=== PATIENT | female | born 1990 | race Caucasian/White ===

== ENCOUNTER 2016-06-18 13:07 | Emergency (ER) | payer OTHER ==
[~2016-06-18] VITALS: Ht 160 cm; Wt 102.5 kg
[~2016-06-18 13:07] MED LIST: IBUP600 PO; PERI8.6T PO; PREN0.01 PO
[2016-06-18 13:08] VITALS: BP 154/90; PULSE 92; RESP 16; TEMP 98.3; O2SAT 100
[2016-06-18] MEDS ORDERED: PREN1TAB63 PO (13:28)
--- NOTE | 2016-06-18 14:04 | PD ---
HPI Chief Complaint: Tool [employer] Checker Problem/Complaint Time Seen by Provider: 14:02 Travel History International Travel<30 days: No Contact w/Intl Traveler<30days: No Traveled to known affect area: No History of Present Illness HPI 25-year-old female coming in with question probably with her IUD. Patient states she is 16 weeks and had an IUD placed approximately 12 weeks ago. Patient had some spotting since IUD placement but recently in the past 2 weeks she's had increased bleeding and clots, the patient felt this morning that she could feel the string of the IUD outside her genitalia. Patient denies fever, chills, urinary symptoms, or abdominal pain. Patient states she did call her [employer]ICT[employer] ANALYST and was scheduled for an ultrasound. Patient states her bleeding has gotten worse in the past 24 hours, but not going through a pad every 2 hours. She denies weakness or dizziness. She has no known drug allergies. PFSH Past Medical History Medical History: Denies Significant Hx Diminished Hearing: No Thyroid Disease: Yes (HYPO) Tetanus Vaccination: Unknown ?: Not LMP: now : 1 Para: 1 Ovarian Cysts: Yes Past Surgical History Other Surgery: Yes (iud 2017) Family History Family Hypercholesterolemia: Yes Social History Alcohol Use: No Tobacco Use: No Substance Use: No Allergies-Medications (Allergen,Severity, Reaction): Coded Allergies: No Known Allergies (Unverified , 06/18/16) Reported Meds & Prescriptions Reported Meds & Active Scripts Active Reported Vitamins 0.8 mg ( Multivit-Min W/Fe-FA) 1 Tab Tab 1 Tab PO DAILY Review of Systems Except as stated in HPI: all other systems reviewed are Neg General / Constitutional: No: Fever Eyes: No: Visual changes HENT: No: Headaches Cardiovascular: No: Chest Pain or Discomfort Respiratory: No: Shortness of Breath Gastrointestinal: No: Abdominal Pain Genitourinary: No: Dysuria Musculoskeletal: No: Pain Skin: No Rash Neurologic: No: Weakness Psychiatric: No: Depression Endocrine: No: Polydipsia Hematologic/Lymphatic: No: Easy Bruising Physical Exam Narrative GENERAL: Patient appears in no acute distress. SKIN: Warm and dry. Normal color. Normal turgor. HEAD: Atraumatic. Normocephalic. EYES: Pupils equal and round. No scleral icterus. No injection or drainage. ENT: No nasal bleeding or discharge. Mucous membranes pink and moist. Pharynx is normal. NECK: Trachea midline. Neck is supple. CARDIOVASCULAR: Regular rate and rhythm. No murmurs gallops or rubs. RESPIRATORY: No accessory muscle use. Clear to auscultation. Breath sounds equal bilaterally. GASTROINTESTINAL: Abdomen soft, non-tender, nondistended. Hepatic and splenic margins not palpable. PELVIC: Pelvic exam shows moderate venous bleeding with clots. The cervical os is open, and no appreciable string from the IUD is noted. Pelvic performed with nursing staff lab manager. MUSCULOSKELETAL: Extremities without clubbing, cyanosis, or edema. No obvious deformities. NEUROLOGICAL: Awake and alert. No obvious cranial nerve deficits. Motor grossly within normal limits. Five out of 5 muscle strength in the arms and legs. Normal speech. PSYCHIATRIC: Appropriate mood and affect; insight and judgment normal. Data Data Last Documented VS Vital Signs Date Time Temp Pulse Resp B/P Pulse Ox O2 Delivery O2 Flow Rate FiO2 06/18/16 13:08 98.3 92 16 154/90 100 Room Air Orders Complete Blood Count With Diff (06/18/16 14:04) Comprehensive Metabolic Panel (06/18/16 14:04) Prothrombin Time / Inr (Pt) (06/18/16 14:04) Act Partial Throm Time (Ptt) (06/18/16 14:04) Iv Access Insert/Monitor (06/18/16 14:04) Ecg Monitoring (06/18/16 14:04) Us Pelvis Comp W Transvaginal (06/18/16 ) Labs Laboratory Tests Test 06/18/16 14:30 White Blood Count 7.3 TH/MM3 Red Blood Count 4.93 MIL/MM3 Hemoglobin 12.7 GM/DL Hematocrit 38.5 % Mean Corpuscular Volume 78.1 FL Mean Corpuscular Hemoglobin 25.8 PG Mean Corpuscular Hemoglobin 33.0 % Concent Red Cell Distribution Width 15.8 % Platelet Count 272 TH/MM3 Mean Platelet Volume 8.5 FL Neutrophils (%) (Auto) 58.2 % Lymphocytes (%) (Auto) 32.6 % Monocytes (%) (Auto) 7.0 % Eosinophils (%) (Auto) 1.5 % Basophils (%) (Auto) 0.7 % Neutrophils # (Auto) 4.2 TH/MM3 Lymphocytes # (Auto) 2.4 TH/MM3 Monocytes # (Auto) 0.5 TH/MM3 Eosinophils # (Auto) 0.1 TH/MM3 Basophils # (Auto) 0.0 TH/MM3 CBC Comment DIFF FINAL Differential Comment Prothrombin Time 11.0 SEC Prothromb Time International 1.0 RATIO Ratio Activated Partial 28.5 SEC Thromboplast Time Sodium Level 141 MEQ/L Potassium Level 3.6 MEQ/L Chloride Level 106 MEQ/L Carbon Dioxide Level 27.2 MEQ/L Anion Gap 8 MEQ/L Blood Urea Nitrogen 9 MG/DL Creatinine 0.69 MG/DL Estimat Glomerular Filtration 103 ML/MIN Rate Random Glucose 65 MG/DL Calcium Level 9.3 MG/DL Total Bilirubin 0.3 MG/DL Aspartate Amino Transf 33 U/L (AST/SGOT) Alanine Aminotransferase 111 U/L (ALT/SGPT) Alkaline Phosphatase 97 U/L Total Protein 7.7 GM/DL Albumin 3.7 GM/DL [facility] Medical Decision Making Medical Screen Exam Complete: Yes Emergency Medical Condition: Yes Differential Diagnosis Vaginal bleeding. Possible IUD issue. 16 weeks . Narrative Course Patient is felt to be medically stable at time of exam. CBC, CMP as well as PT PTT and INR is ordered. No IUD string was identified upon pelvic exam. Patient is discussed with Dr. Deng, who recommends a pelvic ultrasound. CBC, CMP, and coagulation studies are within normal limits. Pelvic ultrasound shows IUD within the cervix, despite no obvious findings on pelvic exam. This is discussed with Dr. Deng, who will reexamine the patient. Dr. Deng performed pelvic exam and did remove the IUD without difficulty. Patient is felt to be stable to be discharged home. Patient has a follow-up with her CONFLICTS ANALYST next Sunday as scheduled. Patient will follow-up as scheduled and use condoms for any sexual activity prior to that visit. Diagnosis Primary Impression: IUD complication Qualified Code: T83.32XA - Displacement of intrauterine contraceptive device, initial encounter Patient Instructions: General Instructions Additional Instructions: Dr. Deng performed pelvic exam and did remove the IUD without difficulty. Patient is felt to be stable to be discharged home. Patient has a follow-up with her CONFLICTS ANALYST next Sunday as scheduled. Patient will follow-up as scheduled and use condoms for any sexual activity prior to that visit. Disposition: DISCHARGE HOME Condition: Stable Anjum Lewis Jun 18, 2016 14:03
[2016-06-18 14:53] LABS: AUTOMATED NEUTROPHIL # 4.2 TH/MM3 (1.8-7.7); BASOPHIL % 0.7 % (0.0-2.0); EOSINOPHIL # 0.1 TH/MM3 (0-0.4); EOSINOPHIL % 1.5 % (0.0-4.0); HEMATOCRIT 38.5 % (35.0-46.0); HEMO FLAGS DIFF FINAL; LYMPH % 32.6 % (9.0-44.0); LYMPHOCYTE # 2.4 TH/MM3 (1.0-4.8); MEAN CELL VOLUME 78.1 FL (80.0-100.0); MEAN CORPUSCULAR HEMOGLOBIN 25.8 PG (27.0-34.0); NEUT % 58.2 % (16.0-70.0); PLATELET COUNT 272 TH/MM3 (150-450); RED BLOOD COUNT 4.93 MIL/MM3 (4.00-5.30); RED CELL DISTRIBUTION WIDTH 15.8 % (11.6-17.2); WHITE BLOOD COUNT 7.3 TH/MM3 (4.0-11.0)
[2016-06-18 15:14] LABS: APTT (PATIENT) 28.5 SEC (24.3-30.1)
[2016-06-18 15:19] LABS: ALT (GPT) 111 U/L (10-53); ANION GAP 8 MEQ/L (5-15); AST (GOT) 33 U/L (15-37); BICARBONATE 27.2 MEQ/L (21.0-32.0); BLOOD UREA NITROGEN 9 MG/DL (7-18); CHLORIDE 106 MEQ/L (98-107); GLOMERULAR FILTRATION RATE 103 ML/MIN (>89); POTASSIUM 3.6 MEQ/L (3.5-5.1); SODIUM (NA) 141 MEQ/L (136-145)
[2016-06-18 15:21] LABS: ALKALINE PHOSPHATASE 97 U/L (45-117); TOTAL BILIRUBIN ADULT 0.3 MG/DL (0.2-1.0)
[2016-06-18 15:25] VITALS: BP 132/74; PULSE 80; RESP 20; O2SAT 100
--- NOTE | 2016-06-18 16:23 | RADRPT ---
EXAM DATE/TIME: 06/18/2016 15:21 [facility] COMPARISON: No previous studies available for comparison. INDICATIONS : Displacement of IUD. Bleeding. MEDICAL HISTORY : Hypothyroidism. IUD. Ovarian cysts. SURGICAL HISTORY : IUd placement in April 2016. ENCOUNTER: Initial ACUITY: 1 week PAIN SCORE: 7/10 LOCATION: Bilateral pelvis MEASUREMENTS: UTERUS: 8.3 x 5.0 x 6.2 cm ENDOMETRIAL STRIPE: 5 mm RIGHT OVARY: 3.9 x 2.3 x 2.3 cm LEFT OVARY: 3.8 x 2.4 x 2.5 cm FINDINGS: UTERUS: The myometrium has homogeneous echotexture without mass. The IUD appears to be located in the region of the cervix. RIGHT OVARY: Ovary contains no mass or significant cystic lesion. LEFT OVARY: Ovary contains no mass or significant cystic lesion. MISCELLANEOUS: No free fluid. CONCLUSION: IUD appears to be located in the region of the cervix. Otherwise unremarkable uterus and ovaries. Kyree Lewis MD on June 18, 2016 at 16:19 Board Certified Radiologist. This report was verified electronically.
--- NOTE | 2016-06-18 18:15 | PD ---
Data Data Last Documented VS Vital Signs Date Time Temp Pulse Resp B/P Pulse Ox O2 Delivery O2 Flow Rate FiO2 06/18/16 15:25 80 20 132/74 100 06/18/16 13:08 98.3 Room Air Orders Complete Blood Count With Diff (06/18/16 14:04) Comprehensive Metabolic Panel (06/18/16 14:04) Prothrombin Time / Inr (Pt) (06/18/16 14:04) Act Partial Throm Time (Ptt) (06/18/16 14:04) Iv Access Insert/Monitor (06/18/16 14:04) Ecg Monitoring (06/18/16 14:04) Us Pelvis Comp W Transvaginal (06/18/16 ) Labs Laboratory Tests Test 06/18/16 14:30 White Blood Count 7.3 TH/MM3 Red Blood Count 4.93 MIL/MM3 Hemoglobin 12.7 GM/DL Hematocrit 38.5 % Mean Corpuscular Volume 78.1 FL Mean Corpuscular Hemoglobin 25.8 PG Mean Corpuscular Hemoglobin 33.0 % Concent Red Cell Distribution Width 15.8 % Platelet Count 272 TH/MM3 Mean Platelet Volume 8.5 FL Neutrophils (%) (Auto) 58.2 % Lymphocytes (%) (Auto) 32.6 % Monocytes (%) (Auto) 7.0 % Eosinophils (%) (Auto) 1.5 % Basophils (%) (Auto) 0.7 % Neutrophils # (Auto) 4.2 TH/MM3 Lymphocytes # (Auto) 2.4 TH/MM3 Monocytes # (Auto) 0.5 TH/MM3 Eosinophils # (Auto) 0.1 TH/MM3 Basophils # (Auto) 0.0 TH/MM3 CBC Comment DIFF FINAL Differential Comment Prothrombin Time 11.0 SEC Prothromb Time International 1.0 RATIO Ratio Activated Partial 28.5 SEC Thromboplast Time Sodium Level 141 MEQ/L Potassium Level 3.6 MEQ/L Chloride Level 106 MEQ/L Carbon Dioxide Level 27.2 MEQ/L Anion Gap 8 MEQ/L Blood Urea Nitrogen 9 MG/DL Creatinine 0.69 MG/DL Estimat Glomerular Filtration 103 ML/MIN Rate Random Glucose 65 MG/DL Calcium Level 9.3 MG/DL Total Bilirubin 0.3 MG/DL Aspartate Amino Transf 33 U/L (AST/SGOT) Alanine Aminotransferase 111 U/L (ALT/SGPT) Alkaline Phosphatase 97 U/L Total Protein 7.7 GM/DL Albumin 3.7 GM/DL [facility] Supervised Visit with DRAKE: Yes Narrative Course The history, exam, and medical decision-making in the associated midlevel provider note were completed with my assistance. I reviewed and agree with the findings presented. I attest that I had a [id number] encounter with the patient on the same day, and personally performed and documented my assessment and findings in the medical record. *My assessment and Findings: This is a 25-year-old female who presents to the emergency department with vaginal bleeding feeling IUD strings in her vagina earlier today. An ultrasound was performed which demonstrates the IUD in the cervix. I performed a pelvic exam and her strings were long and in the vault so I removed the IUD without difficulty. I advised the patient to use contraception and follow-up with Dr. Livingston at her scheduled appointment. Diagnosis Primary Impression: IUD complication Qualified Code: T83.32XA - Displacement of intrauterine contraceptive device, initial encounter Patient Instructions: General Instructions Departure Forms: Tests/Procedures Additional Instruction: Dr. Deng performed pelvic exam and did remove the IUD without difficulty. Patient is felt to be stable to be discharged home. Patient has a follow-up with her [employer] next Sunday as scheduled. Patient will follow-up as scheduled and use condoms for any sexual activity prior to that visit. Disposition: 01 DISCHARGE HOME Condition: Stable Nicole Deng MD Jun 18, 2016 18:14
== END 2016-06-18 17:42 | disposition home or self-care (01) ==
LOC: NEPE 13:07
DX: T83.32XA Displacement of intrauterine contraceptive device, initial encounter (principal); E03.9 Hypothyroidism, unspecified
CPT/HCPCS: 76830; 76856; 80053; 85025; 85610; 85730

== ENCOUNTER 2017-07-06 16:18 | Emergency (ER) | payer OTHER ==
[~2017-07-06 16:18] MED LIST changes: -IBUP600 PO; -PERI8.6T PO; -PREN0.01 PO; +PREN1TAB63 PO
[2017-07-06] MEDS ORDERED: IOHEXOL 350 MG/ML 10 ML VIAL (for RAD DIAG) IVCONTRAST ONE (16:19)
[2017-07-06 16:20] VITALS: BP 154/91; PULSE 80; RESP 14; TEMP 98.5; O2SAT 100
[2017-07-06] MEDS ORDERED: SODIUM CHLOR 0.9% 1000 ML INJ 1,000 ML IV SCH (16:37)
[2017-07-06] MEDS ORDERED: KETOROLAC TROMETHAMINE 30 MG/ML (IVP) VIAL IVP ONE (16:45)
[2017-07-06] MEDS ORDERED: ONDANSETRON HCL 4 MG/2 ML VIAL IVP ONE (16:45)
[2017-07-06] MEDS ORDERED: SODIUM CHLORIDE 0.9% FLUSH 10 ML FLUSH IV FLUSH PRN (16:45)
--- NOTE | 2017-07-06 16:55 | PD ---
HPI Chief Complaint: Abdominal Pain Time Seen by Provider: 16:37 Travel History International Travel<30 days: No Contact w/Intl Traveler<30days: No Traveled to known affect area: No History of Present Illness HPI 26-year-old female presents to the emergency department complaint of right lower quadrant abdominal pain since last night. Reports nausea without vomiting. Denies vaginal discharge, dysuria, fevers, diarrhea. Has had light vaginal bleeding times one month since her IUD was placed. Last normal bowel movement was yesterday. Denies history of abdominal surgeries. Rates pain 6/ 10 and describes it as a "pulling and grabbing" sensation. Tried taking ibuprofen with no leaf of symptoms. Pain has been constant and unrelieved. No known aggravating or relieving factors. No known allergies. Primary care provider is Dr. her mariee. History of PCOC and hypothyroidism. Has no other medical complaints. No other modifying factors or associated signs and symptoms. PFSH Past Medical History Diminished Hearing: No Thyroid Disease: Yes (HYPO) ?: Not LMP: Now : 1 Para: 1 Ovarian Cysts: Yes Past Surgical History Other Surgery: Yes (iud 2017) Family History Family Hypercholesterolemia: Yes Social History Alcohol Use: No Tobacco Use: No Substance Use: No Allergies-Medications (Allergen,Severity, Reaction): Coded Allergies: No Known Allergies (Unverified Allergy, Unknown, 07/06/17) Reported Meds & Prescriptions Reported Meds & Active Scripts Active Reported Vitamins 0.8 mg ( Multivit-Min W/Fe-FA) 1 Tab Tab 1 Tab PO DAILY Review of Systems Except as stated in HPI: all other systems reviewed are Neg Physical Exam Narrative GENERAL: Well-nourished, well-developed female patient, in no acute distress; afebrile SKIN: Warm and dry. HEAD: Atraumatic. Normocephalic. EYES: Pupils equal and round. No scleral icterus. No injection or drainage. ENT: Mucosa pink and moist. Airway patent. NECK: Trachea midline. CARDIOVASCULAR: Regular rate and rhythm. No murmur appreciated. RESPIRATORY: No accessory muscle use. Clear to auscultation. Breath sounds equal bilaterally. GASTROINTESTINAL: Abdomen soft, tenderness on palpation to right lower quadrant , nondistended. Hepatic and splenic margins not palpable. Bowel sounds are active 4 quadrants. Nonrigid. No rebound tenderness. No guarding. BACK: No CVA tenderness. MUSCULOSKELETAL: No obvious deformities. No clubbing. No cyanosis. No edema. NEUROLOGICAL: Awake and alert. Oriented 3. No obvious cranial nerve deficits. Motor grossly within normal limits. Normal speech. PSYCHIATRIC: Appropriate mood and affect; insight and judgment normal. Data Data Last Documented VS Vital Signs Date Time Temp Pulse Resp B/P (MAP) Pulse Ox O2 Delivery O2 Flow Rate FiO2 07/06/17 18:35 62 16 118/71 (87) 99 Room Air 07/06/17 16:20 98.5 Orders Orders Complete Blood Count With Diff (07/06/17 16:37) Comprehensive Metabolic Panel (07/06/17 16:37) Lipase (07/06/17 16:37) Urinalysis - C+S If Indicated (07/06/17 16:37) Iv Access Insert/Monitor (07/06/17 16:37) Ecg Monitoring (07/06/17 16:37) Oximetry (07/06/17 16:37) Ondansetron Inj (Zofran Inj) (07/06/17 16:45) Sodium Chlor 0.9% 1000 Ml Inj (Ns 1000 M (07/06/17 16:37) Sodium Chloride 0.9% Flush (Ns Flush) (07/06/17 16:45) Ketorolac Inj (Toradol Inj) (07/06/17 16:45) Ed Urine Pregnancytest Poc (07/06/17 16:37) Ct Abd/Pel W Iv Contrast(Rout) (07/06/17 16:45) Urine Culture (07/06/17 17:10) Iohexol 350 Inj (Omnipaque 350 Inj) (07/06/17 16:19) Ceftriaxone Inj (Rocephin Inj) (07/06/17 18:30) Labs Laboratory Tests Test 07/06/17 17:10 White Blood Count 7.4 TH/MM3 Red Blood Count 5.27 MIL/MM3 Hemoglobin 15.5 GM/DL Hematocrit 44.9 % Mean Corpuscular Volume 85.2 FL Mean Corpuscular Hemoglobin 29.4 PG Mean Corpuscular Hemoglobin Concent 34.5 % Red Cell Distribution Width 14.1 % Platelet Count 234 TH/MM3 Mean Platelet Volume 8.2 FL Neutrophils (%) (Auto) 66.1 % Lymphocytes (%) (Auto) 26.6 % Monocytes (%) (Auto) 6.4 % Eosinophils (%) (Auto) 0.5 % Basophils (%) (Auto) 0.4 % Neutrophils # (Auto) 4.9 TH/MM3 Lymphocytes # (Auto) 2.0 TH/MM3 Monocytes # (Auto) 0.5 TH/MM3 Eosinophils # (Auto) 0.0 TH/MM3 Basophils # (Auto) 0.0 TH/MM3 CBC Comment DIFF FINAL Differential Comment Urine Color YELLOW Urine Turbidity CLEAR Urine pH 7.5 Urine Specific [place] 1.008 Urine Protein NEG mg/dL Urine Glucose (UA) NEG mg/dL Urine Ketones NEG mg/dL Urine Occult Blood MOD Urine Nitrite NEG Urine Bilirubin NEG Urine Urobilinogen LESS THAN 2.0 MG/DL Urine Leukocyte Esterase SMALL Urine RBC 3 /hpf Urine WBC 10 /hpf Urine Squamous Epithelial Cells 5 /hpf Urine Bacteria RARE /hpf Microscopic Urinalysis Comment CULTURE INDICATED Blood Urea Nitrogen 8 MG/DL Creatinine 0.85 MG/DL Random Glucose 86 MG/DL Total Protein 7.9 GM/DL Albumin 3.9 GM/DL Calcium Level 9.1 MG/DL Alkaline Phosphatase 103 U/L Aspartate Amino Transf (AST/SGOT) 32 U/L Alanine Aminotransferase (ALT/SGPT) 68 U/L Total Bilirubin 0.5 MG/DL Sodium Level 140 MEQ/L Potassium Level 3.7 MEQ/L Chloride Level 106 MEQ/L Carbon Dioxide Level 28.7 MEQ/L Anion Gap 5 MEQ/L Estimat Glomerular Filtration Rate 80 ML/MIN Lipase 75 U/L MDM Medical Decision Making Medical Screen Exam Complete: Yes Emergency Medical Condition: Yes Medical Record Reviewed: Yes Differential Diagnosis Appendicitis, cholecystitis, cholelithiasis, gastritis, Narrative Course 26-year-old female with right lower quadrant abdominal pain. CBC, CMP, lipase, urinalysis, UPT, CT abdomen/pelvis, normal saline bolus, Toradol, Zofran ordered. 180: CBC, CMP, lipase unremarkable. Urinalysis with signs of infection. Urine reflexed to culture. Rocephin administered in the ER. 1840: CT abdomen/pelvis concludes: Abdomen/Pelvis CT 07/06/17 1645 Signed Impressions: Service Date/Time: Thursday, July 06, 2017 18:09 - CONCLUSION: 1. No acute findings in abdomen and pelvic CT. Appendix normal. Small bilateral ovarian cysts. Intrauterine device present. Jensen Sousa MD Patient provided a copy of the CT results and findings discussed. Keflex, ibuprofen prescribed for home. Instructed patient to follow up with primary care provider. Patient verbalizes understanding and agreement with treatment plan. Patient is medically cleared and stable for discharge. Discussed reasons to return to the emergency department. Patient agrees with treatment plan. The patients vital signs are stable and the patient is stable for outpatient follow-up and treatment. Patient discharged home, stable and in no acute distress. Diagnosis Primary Impression: UTI (urinary tract infection) Qualified Codes: N39.0 - Urinary tract infection, site not specified Referrals: Primary Care Physician Patient Instructions: General Instructions, Urinary Tract Infection in Women ( ED) Additional Instructions: Take antibiotics as prescribed and complete full course Drink plenty of fluids Maintain good personal hygiene Follow-up with primary care provider Return to the emergency department immediately with worsening of symptoms Med/Other Pt SpecificInfo: Prescription(s) given Scripts Ibuprofen (Ibuprofen) 800 Mg Tab 800 MG PO Q6HR Y for PAIN, #30 TAB 0 Refills Prov: Sonya Jaime 07/06/17 Cephalexin (Keflex) 500 Mg Cap 500 MG PO Q12H for Infection for 7 Days, #14 CAP 0 Refills Prov: Sonya Jaime 07/06/17 Disposition: 01 DISCHARGE HOME Condition: Stable Sonya Jaime Jul 06, 2017 16:55
[2017-07-06 17:26] LABS: AUTOMATED NEUTROPHIL # 4.9 TH/MM3 (1.8-7.7); BASOPHIL % 0.4 % (0.0-2.0); EOSINOPHIL % 0.5 % (0.0-4.0); HEMATOCRIT 44.9 % (35.0-46.0); HEMOGLOBIN 15.5 GM/DL (11.6-15.3); LYMPH % 26.6 % (9.0-44.0); MEAN CELL VOLUME 85.2 FL (80.0-100.0); MEAN CORPUSCULAR HEMOGLOBIN 29.4 PG (27.0-34.0); MEAN CORPUSCULAR HGB CONC 34.5 % (32.0-36.0); MEAN PLATELET VOLUME 8.2 FL (7.0-11.0); MONO % 6.4 % (0.0-8.0); MONOCYTE # 0.5 TH/MM3 (0-0.9); NEUT % 66.1 % (16.0-70.0); PLATELET COUNT 234 TH/MM3 (150-450); RED BLOOD COUNT 5.27 MIL/MM3 (4.00-5.30); RED CELL DISTRIBUTION WIDTH 14.1 % (11.6-17.2); WHITE BLOOD COUNT 7.4 TH/MM3 (4.0-11.0)
[2017-07-06 17:45] LABS: BACTERIA, URINE RARE /hpf; BILIRUBIN, URINE NEG (NEG); BLOOD, URINE MOD (NEG); GLUCOSE,URINE NEG (NEG); KETONE, URINE NEG (NEG); NITRITE,URINE NEG (NEG); PH, URINE 7.5 (5.0-8.5); SQUAMOUS EPITHELIAL CELL URINE 5 /hpf (0-5); URINE COLOR YELLOW (YELLW/STRAW); URINE LEUKOCYTE ESTERASE SMALL (NEG)
[2017-07-06 17:49] LABS: ALBUMIN 3.9 GM/DL (3.4-5.0); AST (GOT) 32 U/L (15-37); BICARBONATE 28.7 MEQ/L (21.0-32.0); BLOOD UREA NITROGEN 8 MG/DL (7-18); CALCIUM 9.1 MG/DL (8.5-10.1); CHLORIDE 106 MEQ/L (98-107); CREATININE 0.85 MG/DL (0.50-1.00); GLOMERULAR FILTRATION RATE 80 ML/MIN (>89); GLUCOSE,RANDOM 86 MG/DL (74-106); LIPASE 75 U/L (73-393); SODIUM (NA) 140 MEQ/L (136-145)
[2017-07-06 17:50] LABS: ALT (GPT) 68 U/L (10-53)
[2017-07-06 17:52] LABS: ALKALINE PHOSPHATASE 103 U/L (45-117); TOTAL BILIRUBIN ADULT 0.5 MG/DL (0.2-1.0); TOTAL PROTEIN 7.9 GM/DL (6.4-8.2)
--- NOTE | 2017-07-06 18:26 | RADRPT ---
EXAM DATE/TIME: 07/06/2017 18:09 [facility] COMPARISON: No previous studies available for comparison. INDICATIONS : Patient complains of right lower abdomen quadrant pain. IV CONTRAST: 100 cc Omnipaque 350 (iohexol) IV ORAL CONTRAST: No oral contrast ingested. RADIATION DOSE: 15.60 CTDIvol (mGy) MEDICAL HISTORY : None SURGICAL HISTORY : None. ENCOUNTER: Initial ACUITY: 1 day PAIN SCALE: 5/10 LOCATION: Right lower quadrant TECHNIQUE: Volumetric scanning of the abdomen and pelvis was performed. Using automated exposure control and ad justment of the mA and/or kV according to patient size, radiation dose was kept as low as reasonably achievable to obtain optimal diagnostic quality images. DICOM format image data is available electro nically for review and comparison. FINDINGS: Lung bases are clear. No acute findings in the liver, spleen, adrenals, kidneys or pancreas. No free fluid. The bowel obstruction. No adenopathy. Appendix is normal. Small bilateral ovarian cysts. Intrauterine device present. No acute bony abnorma lities. CONCLUSION: 1. No acute findings in abdomen and pelvic CT. Appendix normal. Small bilateral ovarian cysts. Intrau terine device present. Jensen Sousa MD on July 06, 2017 at 18:17 Board Certified Radiologist. This report was verified electronically.
[2017-07-06] MEDS ORDERED: cefTRIAXone INJ 1,000 MG in SODIUM CHLORIDE 0.9% INJ 100 ML IV ONE (18:30)
[2017-07-06 18:35] VITALS: BP 118/71; PULSE 62; RESP 16; O2SAT 99
[2017-07-06] MEDS ORDERED: CEPH-460 PO (18:41)
[2017-07-06] MEDS ORDERED: IBUP1TAB7 PO (18:41)
[2017-07-06 19:43] VITALS: BP 119/69
== END 2017-07-06 19:46 | disposition home or self-care (01) ==
LOC: NEPD 16:18
DX: N39.0 Urinary tract infection, site not specified (principal)
CPT/HCPCS: 74177; 80053; 81001; 83690; 84703; 85025; 87086; 96361; 96365; 96375; 99285; J0696; J1885; J2405; J7030; Q9967

== ENCOUNTER 2017-09-14 03:32 | Emergency (ER) | payer OTHER ==
[~2017-09-14] VITALS: Ht 165.1 cm; Wt 75.0 kg
[~2017-09-14 03:32] MED LIST changes: +CEPH-460 PO; +IBUP1TAB7 PO
[2017-09-14 04:01] VITALS: BP 157/92; PULSE 101; RESP 16; TEMP 98.5; O2SAT 97
[2017-09-14] MEDS ORDERED: IBUPROFEN 600 MG TAB PO ONE (04:45)
--- NOTE | 2017-09-14 04:57 | PD ---
HPI Chief Complaint: Back/ Neck Pain or Injury Time Seen by Provider: 04:38 Travel History International Travel<30 days: No Contact w/Intl Traveler<30days: No Traveled to known affect area: No History of Present Illness HPI 27-year-old female here for evaluation of neck and back pain. 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 She denies head injury or LOC. She now complains of neck and back pain that is moderate, constant, worse with movements. She also describes a slight dyspnea. No paresthesias or motor deficits. No other injuries. The incident occurred at around 3:30 AM today. PFSH Past Medical History Diminished Hearing: No Immunizations Current: Yes Thyroid Disease: Yes (HYPO) Tetanus Vaccination: Unknown Influenza Vaccination: Yes ?: Unknown : 1 Para: 1 Ovarian Cysts: Yes Past Surgical History Other Surgery: Yes (iud 2017) Family History Family Hypercholesterolemia: Yes Social History Alcohol Use: No Tobacco Use: No Substance Use: No Allergies-Medications (Allergen,Severity, Reaction): Coded Allergies: No Known Allergies (Unverified Allergy, Unknown, 09/14/17) Reported Meds & Prescriptions Reported Meds & Active Scripts Active Ibuprofen 800 Mg Tab 800 Mg PO Q6HR PRN Keflex (Cephalexin) 500 Mg Cap 500 Mg PO Q12H 7 Days Reported Vitamins 0.8 mg ( Multivit-Min W/Fe-FA) 1 Tab Tab 1 Tab PO DAILY Review of Systems Except as stated in HPI: all other systems reviewed are Neg Physical Exam Narrative GENERAL: Well-developed, well-nourished, awake, alert, GCS 15, no apparent distress. SKIN: Focused skin assessment warm/dry. No lacerations, abrasions, or ecchymosis. HEAD: Atraumatic. Normocephalic. EYES: Pupils equal and round. No scleral icterus. No injection or drainage. ENT: Mucous membranes pink and moist. NECK: Trachea midline. No JVD. Mild midline cervical spine tenderness without step-off. CARDIOVASCULAR: Regular rate and rhythm. RESPIRATORY: No accessory muscle use. Clear to auscultation. Breath sounds equal bilaterally. GASTROINTESTINAL: Abdomen soft, non-tender, nondistended. Hepatic and splenic margins not palpable. MUSCULOSKELETAL: No obvious deformities. No clubbing. No cyanosis. No edema. Mild midline thoracic spine and lumbar spine tenderness without step-off. All joints and extremities are without deformity, without tenderness, with normal range of motion. NEUROLOGICAL: Awake and alert. No obvious cranial nerve deficits. Motor grossly within normal limits. Normal speech. PSYCHIATRIC: Appropriate mood and affect; insight and judgment normal. Data Data Last Documented VS Vital Signs Date Time Temp Pulse Resp B/P (MAP) Pulse Ox O2 Delivery O2 Flow Rate FiO2 09/14/17 04:01 98.5 101 16 157/92 (113) 97 Orders Orders Ibuprofen (Motrin) (09/14/17 04:45) Spine, Lumbar Comp W/Obliq (09/14/17 ) Spine, Cervical Compl([id number]) (09/14/17 ) Spine, Thoracic-Ap/Lat/Sw(3vw) (09/14/17 ) Ed Urine Pregnancytest Poc (09/14/17 04:41) Chest, Single Ap (09/14/17 ) MDM Medical Decision Making Medical Screen Exam Complete: Yes Emergency Medical Condition: Yes Differential Diagnosis Vertebral injury, back strain/contusion Narrative Course Chest x-ray shows no acute cardiopulmonary disease. C-spine x-ray: Within normal limits. T-spine x-ray: Mild thoracic scoliosis. Mild bony degenerative findings. No evidence of fracture. L-spine x-ray: No evidence of fracture. Patient was made aware of all findings. She is resting comfortably. She is stable for discharge home with outpatient follow-up with a primary care physician this week. She was advised on when to return to the emergency department. She verbalizes understanding and agreement with plan. Diagnosis Primary Impression: Back strain Qualified Codes: S39.012A - Strain of muscle, fascia and tendon of lower back , initial encounter Referrals: Primary Care Physician 3 days Additional Instructions: Follow-up with a primary care physician this week. Ibuprofen/Tylenol for pain. Return to the emergency department for worsening symptoms or any other concerns. Disposition: 01 DISCHARGE HOME Condition: Stable Fan Ragland MD Sep 14, 2017 04:57
--- NOTE | 2017-09-14 05:53 | RADRPT ---
EXAM DATE/TIME: 09/14/2017 05:18 [facility] COMPARISON: No previous studies available for comparison. INDICATIONS : Patient was working and had patient fall on them. Shortness of breath. MEDICAL HISTORY : None. SURGICAL HISTORY : None. ENCOUNTER: Initial ACUITY: 1 day PAIN SCORE: 0/10 LOCATION: chest FINDINGS: Single AP view of the chest. The lungs are clear. Cardiomediastinal silhouette within normal limits. No evidence of pleural effusion or pneumothorax. CONCLUSION: No acute cardiopulmonary disease identified. Guerrero Flood MD on September 14, 2017 at 5:50 Board Certified Radiologist. This report was verified electronically.
--- NOTE | 2017-09-14 06:12 | RADRPT ---
EXAM DATE/TIME: 09/14/2017 05:32 [facility] COMPARISON: No previous studies available for comparison. INDICATIONS : Patient was at work and had patient fall on them. Complains of lower back pain. MEDICAL HISTORY : None. SURGICAL HISTORY : None. ENCOUNTER: Initial ACUITY: 1 day PAIN SCORE: 8/10 LOCATION: L-Spine FINDINGS: 5 views lumbar spine. Bone alignment within normal limits. No evidence of fracture. Vertebral body h eight and shape within normal limits. IUD in place. CONCLUSION: No evidence of fracture. Guerrero Flood MD on September 14, 2017 at 6:09 Board Certified Radiologist. This report was verified electronically.
--- NOTE | 2017-09-14 06:13 | RADRPT ---
EXAM DATE/TIME: 09/14/2017 05:31 [facility] COMPARISON: No previous studies available for comparison. INDICATIONS : Patient was at work and had patient fall on them. Complains of upper back pain. MEDICAL HISTORY : None. SURGICAL HISTORY : None. ENCOUNTER: Initial ACUITY: 1 day PAIN SCORE: 3/10 LOCATION: T-Spine FINDINGS: 3 views thoracic spine. Mild S-shaped thoracic scoliosis. Bone alignment within normal limits. No ev idence of fracture. Small endplate osteophytes at every level of the thoracic spine. CONCLUSION: 1. Mild thoracic scoliosis. Mild bony degenerative findings. 2. No evidence of fracture. Guerrero Flood MD on September 14, 2017 at 6:10 Board Certified Radiologist. This report was verified electronically.
--- NOTE | 2017-09-14 06:19 | RADRPT ---
EXAM DATE/TIME: 09/14/2017 05:20 [facility] COMPARISON: No previous studies available for comparison. INDICATIONS : Patient was at work and had a patient fall on them. Complains of neck pain and limited ROM. MEDICAL HISTORY : None. SURGICAL HISTORY : None. ENCOUNTER: Initial ACUITY: 1 day PAIN SCORE: 5/10 LOCATION: C-Spine FINDINGS: 6 views of the cervical spine. Bone alignment within normal limits. No evidence of fracture. Vertebr al body height and shape within normal limits. CONCLUSION: Cervical spine series within normal limits. Guerrero Flood MD on September 14, 2017 at 6:15 Board Certified Radiologist. This report was verified electronically.
== END 2017-09-14 06:47 | disposition home or self-care (01) ==
LOC: NEPC 03:32
DX: S39.012A Strain of muscle, fascia and tendon of lower back, initial encounter (principal); W19.XXXA Unspecified fall, initial encounter; Y93.F9 Activity, other caregiving; Y99.0 Civilian activity done for income or pay; M54.2 Cervicalgia; E03.9 Hypothyroidism, unspecified; N83.209 Unspecified ovarian cyst, unspecified side
CPT/HCPCS: 71045; 72050; 72072; 72110; 84703; 99284

== ENCOUNTER 2017-09-21 21:22 | Emergency (ER) | payer OTHER ==
[2017-09-21 21:40] VITALS: BP 148/87; PULSE 95; RESP 16; TEMP 98.7; O2SAT 99
--- NOTE | 2017-09-21 22:26 | PD ---
HPI Chief Complaint: Headache Time Seen by Provider: 22:15 Travel History International Travel<30 days: No Contact w/Intl Traveler<30days: No Traveled to known affect area: No History of Present Illness HPI 27-year-old white female presents to emergency Department with complaints of migraine headache. Patient states that she developed a migraine headache this evening sometime after 5 PM. She has had associated nausea but no vomiting. She has had a history of migraines in the past. She states that this was more intense than usual. She denies any numbness, tingling or weakness. No diplopia or blurred vision. No photophobia. No recent illnesses. No fever chills. PFSH Past Medical History Narrative Medical Migraine headaches, hypothyroidism Diminished Hearing: No Immunizations Current: Yes Thyroid Disease: Yes (HYPO) ?: Not : 1 Para: 1 Ovarian Cysts: Yes Past Surgical History Surgical History: No Previous Surgery Other Surgery: Yes (iud 2017) Family History Family Hypercholesterolemia: Yes Social History Alcohol Use: No Tobacco Use: No Substance Use: No Allergies-Medications (Allergen,Severity, Reaction): Coded Allergies: No Known Allergies (Unverified Allergy, Unknown, 09/14/17) Reported Meds & Prescriptions Reported Meds & Active Scripts Active Ibuprofen 800 Mg Tab 800 Mg PO Q6HR PRN Keflex (Cephalexin) 500 Mg Cap 500 Mg PO Q12H 7 Days Reported Vitamins 0.8 mg ( Multivit-Min W/Fe-FA) 1 Tab Tab 1 Tab PO DAILY Review of Systems Except as stated in HPI: all other systems reviewed are Neg Physical Exam Narrative GENERAL: Well-developed, well-nourished in no apparent distress. Nontoxic appearing. HEAD: Normocephalic, atraumatic. EYES: Pupils equal round and reactive. Extraocular motions intact. No scleral icterus. No injection or drainage. ENT: Nose clear. Throat without erythema, tonsillar hypertrophy or exudate. Uvula midline. Airway patent. NECK: Trachea midline. Supple, nontender, moves head freely. No central bony tenderness or spasm. CARDIOVASCULAR: Regular rate and rhythm without murmurs, gallops, or rubs. RESPIRATORY: Clear to auscultation. Breath sounds equal bilaterally. No wheezes , rales, or rhonchi. GASTROINTESTINAL: Abdomen soft, non-tender, nondistended. No hepato-splenomegaly , or palpable masses. No guarding. EXTREMITIES: No clubbing, cyanosis, or edema. No joint tenderness. BACK: Nontender without deformity. No flank tenderness. NEUROLOGICAL: Awake, alert and oriented x 3 .Cranial nerves grossly intact. Motor and sensory grossly within normal limits. Normal speech. Data Data Last Documented VS Vital Signs Date Time Temp Pulse Resp B/P (MAP) Pulse Ox O2 Delivery O2 Flow Rate FiO2 09/21/17 22:30 87 20 149/89 (109) 98 Room Air 09/21/17 21:40 98.7 Orders Orders Iv Access Insert/Monitor (09/21/17 22:20) Sodium Chlor 0.9% 1000 Ml Inj (Ns 1000 M (09/21/17 22:30) Diphenhydramine Inj (Benadryl Inj) (09/21/17 22:30) Prochlorperazine Inj (Compazine Inj) (09/21/17 22:30) MDM Medical Decision Making Medical Screen Exam Complete: Yes Emergency Medical Condition: Yes Medical Record Reviewed: Yes Differential Diagnosis MDM: High Differential diagnoses: Subarachnoid hemorrhage, intracranial bleed, aneurysm, pseudotumor, migraine, cluster headache, atypical migraine, temporal arteritis, connective tissue disorder, hypertension, temporal arteritis, sinusitis, sinus headache,malingering Narrative Course IV access is obtained. Patient given a liter bolus normal saline, Benadryl 50 mg IV and Compazine 10 mg IV. Patient is reexamined. She states that her headache is completely resolved. This is cephalgia Diagnosis Primary Impression: cephalgia Patient Instructions: General Instructions Departure Forms: Tests/Procedures, Work Release Special Instructions: No work 1-2 days. Additional Instructions: Rest. Increase fluids. Follow-up with a medical doctor next week. Return to the ER for any problems. Disposition: 01 DISCHARGE HOME Condition: Stable Jensen Watt Sep 21, 2017 22:26
[2017-09-21 22:30] VITALS: BP 149/89; PULSE 87; RESP 20; O2SAT 98
[2017-09-21] MEDS ORDERED: PROCHLORPERAZINE INJ 10 MG/2 ML VIAL IV PUSH ONE (22:30)
[2017-09-21] MEDS ORDERED: SODIUM CHLOR 0.9% 1000 ML INJ 1,000 ML IV ONE (22:30)
[2017-09-21] MEDS ORDERED: diphenhydrAMINE HCL 50 MG/ML VIAL IV PUSH ONE (22:30)
[2017-09-21 23:27] VITALS: BP 135/81
== END 2017-09-21 23:35 | disposition home or self-care (01) ==
LOC: NEPD 21:22
DX: R51 Headache (principal); E03.9 Hypothyroidism, unspecified
CPT/HCPCS: 96361; 96374; 96375; 99284; J0780; J1200; J7030